=== PATIENT | female | born 1945 | race Caucasian/White ===

== ENCOUNTER 2017-04-09 15:14 | Emergency (ER) | payer MEDICARE ==
[~2017-04-09] VITALS: Ht 167.6 cm; Wt 70.0 kg
[~2017-04-09 15:14] MED LIST: ALPR0.5T3 PO; BIOT10TA PO; CALCTAB33 PO; LAMO25TA PO; LOPE7.5C PO; LYSI1TAB4 PO; VITA1000 PO; VITA200C3 PO; VITA8000 PO; VITACAP9 PO; ZINC50TA2 PO; [UNRECOGNIZED DRUG - CODE] PO
[2017-04-09 15:16] VITALS: BP 126/74; PULSE 85; RESP 16; TEMP 97.4; O2SAT 95
[2017-04-09 19:45] VITALS: BP 124/75; PULSE 88; RESP 14; O2SAT 97
[2017-04-09] MEDS ORDERED: SODIUM CHLOR 0.9% 1000 ML INJ 1,000 ML IV SCH (20:18)
--- NOTE | 2017-04-09 20:25 | PD ---
HPI Chief Complaint: GI Complaint Time Seen by Provider: 20:06 Travel History International Travel<30 days: No Contact w/Intl Traveler<30days: No Traveled to known affect area: No History of Present Illness HPI 71-year-old female complains of abdominal pain with nausea vomiting and diarrhea. Patient has history of ruptured: Abscess in the past status post partial colectomy. Patient status post right foot surgery yesterday. Patient states that she was resting today and started having severe abdominal pain with nausea vomiting and diarrhea. Patient states that the symptoms started around 12 noon today. Patient states that the symptoms are better now. Patient denies any headache. Patient denies any chest pain or shortness of breath. Patient denies any coughing congestion. Patient denies any fever chills. Patient has history of COPD, CVA, seizure, hypothyroidism not on medication. Patient status post hysterectomy and partial colectomy in the past. PFSH Past Medical History Arthritis: Yes Asthma: No Autoimmune Disease: No Anxiety: Yes Depression: No Cancer: No Cardiovascular Problems: No Chemotherapy: No COPD: Yes Cerebrovascular Accident: Yes Diabetes: No Diminished Hearing: No Endocrine: Yes Gastrointestinal Disorders: Yes (DISCOMFORT LOWER ABDOMEN; COLON ABSCESS RUPTURED) Genitourinary: Yes (frequency, discomfort) Headaches: No Hepatitis: No Hiatal Hernia: No Hypertension: No Immune Disorder: No Implanted Vascular Access Dvce: No Musculoskeletal: Yes (ARTHRITIS; OSTEOPEROSIS) Neurologic: Yes (1 SEIZURE MANY YRS AGO; HX STROKE ; ESSENTIAL TREMORS) Psychiatric: No Reproductive: No Respiratory: No Migraines: No Radiation Therapy: No Seizures: Yes Sickle Cell Disease: No Sleep Apnea: No Tetanus Vaccination: > 5 Years Influenza Vaccination: No ?: Not : 1 Para: 1 Past Surgical History Abdominal Surgery: Yes (LOWER COLON REMOVED) AICD: No Arteriovenous Shunt: No Cardiac Surgery: No Ear Surgery: No Endocrine Surgery: No Eye Surgery: Yes (CATARACT EXTRACTION, RIGHT EYE, REPAIRED TORN RETINA) Genitourinary Surgery: No Gynecologic Surgery: Yes (TOTAL HYSTERECTOMY) Hysterectomy: Yes (FULL) Insulin Pump: No Joint Replacement: Yes (RIGHT TOTAL SHOULDER) Neurologic Surgery: No Oral Surgery: Yes (TONSILLECTOMY ) Pacemaker: No Thoracic Surgery: No Tonsillectomy: Yes Other Surgery: Yes Social History Alcohol Use: Yes Tobacco Use: No Substance Use: No Allergies-Medications (Allergen,Severity, Reaction): Coded Allergies: amoxicillin (Unverified Allergy, Severe, STOPS BREATHING, 03/30/17) iohexol (Unverified Allergy, Severe, Code 99 - Respiratory Failure, ) IVP DYE FOR KIDNEY STUDIES Sulfa (Sulfonamide Antibiotics) (Unverified Allergy, Intermediate, Rash, ) iodine (Unverified Allergy, Mild, rash, 03/30/17) potassium iodide (Unverified Allergy, Mild, rash, 03/30/17) povidone-iodine (Unverified Allergy, Mild, rash, 03/30/17) sodium iodide (Unverified Allergy, Mild, rash, 03/30/17) sodium iodide (Unverified Allergy, Mild, rash, 03/30/17) Uncoded Allergies: pneumonia vaccine (Allergy, Severe, Swelling., 03/08/16) pt reports swelling in ectremitity post injection NOVOCAINE (Allergy, Mild, heart rate decreased, 06/09/16) cillins (Allergy, Unknown, RESPIRATORY, 03/08/16) Reported Meds & Prescriptions Reported Meds & Active Scripts Active Reported Biotin 10 Mg Tab 10 Mg PO DAILY Calcium 600+D Plus Minerals (Calcium Carbonate-Vitamin D W/Minerals) 600-400 Mg- Unit Tab 1 Tab PO BID Alprazolam 0.5 Mg Tab 0.5 Mg PO TID PRN D 1000 (Cholecalciferol) 1,000 Unit Tab 1,000 Units PO DAILY Imodium A-D (Loperamide HCl) 2 Mg Cap 2 Mg PO BID One capsule after each loose stool. Not to exceed 8 tablets per day. Lamotrigine 25 Mg Tab 50 Mg PO BID Lysine (Lysine HCl) 500 Mg Tab 500 Mg PO DAILY Sm Megakrill 300 mg (Krill Oil) 1 Cap Cap 300 Mg PO DAILY Vitamin A 8,000 Unit Cap 8,000 Units PO DAILY Vitamin B Complex-C (B Complex W/ C) 1 Cap Cap 1 Cap PO DAILY Vitamin E 200 Unit Cap 400 Units PO DAILY Zinc Gluconate 50 Mg Tab 50 Mg PO DAILY Review of Systems General / Constitutional: No: Fever Eyes: No: Visual changes HENT: No: Headaches Cardiovascular: No: Chest Pain or Discomfort Respiratory: No: Shortness of Breath Gastrointestinal: Positive: Nausea, Vomiting, Diarrhea, Abdominal Pain Genitourinary: No: Dysuria Musculoskeletal: No: Pain Skin: No Rash Neurologic: No: Weakness Psychiatric: No: Depression Endocrine: No: Polydipsia Hematologic/Lymphatic: No: Easy Bruising Physical Exam Narrative GENERAL: Well-nourished, well-developed patient. SKIN: Focused skin assessment warm/dry. HEAD: Normocephalic. EYES: No scleral icterus. No injection or drainage. NECK: Supple, trachea midline. No JVD or lymphadenopathy. CARDIOVASCULAR: Regular rate and rhythm without murmurs, gallops, or rubs. RESPIRATORY: Breath sounds equal bilaterally. No accessory muscle use. GASTROINTESTINAL: Abdomen soft, nondistended. Patient has mild diffuse tenderness over the abdomen. No rebound tenderness. No mass. MUSCULOSKELETAL: No cyanosis, or edema. Right foot with dressing in place. BACK: Nontender without obvious deformity. No CVA tenderness. Neurologic exam normal. Data Data Last Documented VS Vital Signs Date Time Temp Pulse Resp B/P (MAP) Pulse Ox O2 Delivery O2 Flow Rate FiO2 04/09/17 19:45 88 14 124/75 (91) 97 Room Air 04/09/17 15:16 97.4 Orders Orders Complete Blood Count With Diff (04/09/17 20:18) Comprehensive Metabolic Panel (04/09/17 20:18) Lipase (04/09/17 20:18) Prothrombin Time / Inr (Pt) (04/09/17 20:18) Act Partial Throm Time (Ptt) (04/09/17 20:18) Urinalysis - C+S If Indicated (04/09/17 20:18) Ct Abd/Pel W/O Iv Contrast (04/09/17 20:18) Iv Access Insert/Monitor (04/09/17 20:18) Ecg Monitoring (04/09/17 20:18) Oximetry (04/09/17 20:18) Ondansetron Inj (Zofran Inj) (04/09/17 20:30) Pantoprazole Inj (Protonix Inj) (04/09/17 20:30) Sodium Chlor 0.9% 1000 Ml Inj (Ns 1000 M (04/09/17 20:18) Labs Laboratory Tests Test 04/09/17 20:10 04/09/17 20:45 White Blood Count 9.2 TH/MM3 Red Blood Count 4.51 MIL/MM3 Hemoglobin 14.7 GM/DL Hematocrit 44.5 % Mean Corpuscular Volume 98.8 FL Mean Corpuscular Hemoglobin 32.7 PG Mean Corpuscular Hemoglobin Concent 33.1 % Red Cell Distribution Width 13.5 % Platelet Count 157 TH/MM3 Mean Platelet Volume 8.3 FL Neutrophils (%) (Auto) 88.8 % Lymphocytes (%) (Auto) 7.4 % Monocytes (%) (Auto) 3.1 % Eosinophils (%) (Auto) 0.2 % Basophils (%) (Auto) 0.5 % Neutrophils # (Auto) 8.2 TH/MM3 Lymphocytes # (Auto) 0.7 TH/MM3 Monocytes # (Auto) 0.3 TH/MM3 Eosinophils # (Auto) 0.0 TH/MM3 Basophils # (Auto) 0.0 TH/MM3 CBC Comment DIFF FINAL Differential Comment Prothrombin Time 9.7 SEC Prothromb Time International Ratio 0.9 RATIO Activated Partial Thromboplast Time 23.6 SEC Blood Urea Nitrogen 19 MG/DL Creatinine 0.73 MG/DL Random Glucose 122 MG/DL Total Protein 7.3 GM/DL Albumin 4.1 GM/DL Calcium Level 9.0 MG/DL Alkaline Phosphatase 70 U/L Aspartate Amino Transf (AST/SGOT) 33 U/L Alanine Aminotransferase (ALT/SGPT) 30 U/L Total Bilirubin 1.1 MG/DL Sodium Level 141 MEQ/L Potassium Level 3.9 MEQ/L Chloride Level 106 MEQ/L Carbon Dioxide Level 27.4 MEQ/L Anion Gap 8 MEQ/L Estimat Glomerular Filtration Rate 78 ML/MIN Lipase 86 U/L Urine Color YELLOW Urine Turbidity CLEAR Urine pH 5.5 Urine Specific [place] 1.022 Urine Protein TRACE mg/dL Urine Glucose (UA) NEG mg/dL Urine Ketones 10 mg/dL Urine Occult Blood TRACE Urine Nitrite NEG Urine Bilirubin NEG Urine Urobilinogen LESS THAN 2.0 MG/DL Urine Leukocyte Esterase NEG Urine RBC 6 /hpf Urine WBC 4 /hpf Urine Squamous Epithelial Cells 1 /hpf Urine Hyaline Casts 1 /lpf Urine Mucus FEW /lpf Microscopic Urinalysis Comment CULT NOT INDICATED MDM Medical Decision Making Medical Screen Exam Complete: Yes Emergency Medical Condition: Yes Interpretation(s) 21:33 PM. CBC within normal limit. CMP within normal limit. 21:48 PM. UA is negative. CT scan abdomen and pelvis shows no obstruction or acute inflammatory changes. Nonobstructive stone in both kidneys. Mass lower pole right kidney. 8 millimeters subpleural nodule left lower lobe. Patient was given results of CT to follow-up with her physician. Differential Diagnosis Differential diagnosis including gastroenteritis, gastritis, PUD, appendicitis, cholecystitis, colitis, UTI, pyelonephritis, nephrolithiasis. Narrative Course 71-year-old female with abdominal pain, nausea vomiting diarrhea. Normal saline solution 1 25 cc an hour. Protonix 40 mg IV. Zofran 4 mg IV. Diagnosis Primary Impression: Gastroenteritis Patient Instructions: General Instructions Additional Instructions: Take medications as needed. Clear fluids tonight and advance diet tomorrow. Follow-up with personal physician. Return if persistent problem or worse. Follow-up with local physician about lung nodule and kidney mass. Med/Other Pt SpecificInfo: Prescription(s) given Scripts Ondansetron Odt (Zofran Odt) 4 Mg Tab 4 MG SL Q6HR Y for Nausea/Vomiting, #10 TAB 0 Refills Prov: Bhavik Da Silva MD 04/09/17 Dicyclomine (Bentyl) 10 Mg Cap 10 MG PO TID Y for Bowel Management, #15 CAP 0 Refills Prov: Bhavik Da Silva MD 04/09/17 Disposition: 01 DISCHARGE HOME Condition: Stable Bhavik Da Silva MD Apr 09, 2017 20:25
[2017-04-09] MEDS ORDERED: ONDANSETRON HCL 4 MG/2 ML VIAL IVP ONE (20:30)
[2017-04-09] MEDS ORDERED: PANTOPRAZOLE SODIUM 40 MG VIAL IVP ONE (20:30)
[2017-04-09 20:46] LABS: AUTOMATED NEUTROPHIL # 8.2 TH/MM3 (1.8-7.7); BASOPHIL % 0.5 % (0.0-2.0); EOSINOPHIL % 0.2 % (0.0-4.0); HEMATOCRIT 44.5 % (35.0-46.0); HEMO FLAGS DIFF FINAL; LYMPH % 7.4 % (9.0-44.0); LYMPHOCYTE # 0.7 TH/MM3 (1.0-4.8); MEAN CELL VOLUME 98.8 FL (80.0-100.0); MEAN CORPUSCULAR HEMOGLOBIN 32.7 PG (27.0-34.0); MEAN CORPUSCULAR HGB CONC 33.1 % (32.0-36.0); MONO % 3.1 % (0.0-8.0); NEUT % 88.8 % (16.0-70.0); PLATELET COUNT 157 TH/MM3 (150-450); RED BLOOD COUNT 4.51 MIL/MM3 (4.00-5.30); RED CELL DISTRIBUTION WIDTH 13.5 % (11.6-17.2); WHITE BLOOD COUNT 9.2 TH/MM3 (4.0-11.0)
[2017-04-09 20:57] LABS: APTT (PATIENT) 23.6 SEC (24.3-30.1); INTERNATIONAL NORMALIZED RATIO 0.9 RATIO; PROTHROMBIN TIME - PATIENT 9.7 SEC (9.8-11.6)
[2017-04-09 20:59] LABS: ANION GAP 8 MEQ/L (5-15); AST (GOT) 33 U/L (15-37); BICARBONATE 27.4 MEQ/L (21.0-32.0); BLOOD UREA NITROGEN 19 MG/DL (7-18); CHLORIDE 106 MEQ/L (98-107); GLOMERULAR FILTRATION RATE 78 ML/MIN (>89); POTASSIUM 3.9 MEQ/L (3.5-5.1); SODIUM (NA) 141 MEQ/L (136-145)
[2017-04-09 21:00] LABS: ALT (GPT) 30 U/L (10-53)
[2017-04-09 21:02] LABS: ALKALINE PHOSPHATASE 70 U/L (45-117); TOTAL BILIRUBIN ADULT 1.1 MG/DL (0.2-1.0)
--- NOTE | 2017-04-09 21:17 | RADRPT ---
EXAM DATE/TIME: 04/09/2017 20:53 [facility] COMPARISON: No previous studies available for comparison. INDICATIONS : Abdominal pain, nausea and diarrhea. ORAL CONTRAST: No oral contrast ingested. RADIATION DOSE: 6.89 CTDIvol (mGy) MEDICAL HISTORY : Seizures. SURGICAL HISTORY : Hysterectomy. ENCOUNTER: Initial ACUITY: 1 day PAIN SCALE: 6/10 LOCATION: All quadrants. TECHNIQUE: Volumetric scanning of the abdomen and pelvis was performed. Using automated exposure control and ad justment of the mA and/or kV according to patient size, radiation dose was kept as low as reasonably achievable to obtain optimal diagnostic quality images. DICOM format image data is available electro nically for review and comparison. FINDINGS: LOWER LUNGS: An 8 mm subpleural pulmonary nodule has developed at the left lower lobe. LIVER: Homogeneous density without lesion. There is no dilation of the biliary tree. No calcified gallston es. SPLEEN: Focal capsular calcification again noted, appears benign. PANCREAS: Within normal limits. KIDNEYS: Scattered sub-3 mm nonobstructing stones are seen in both kidneys. No ureteral calculus or hydronephr osis/hydroureter demonstrated. There is a heterogeneous and potentially solid mass laterally of the l ower pole of the right kidney that measures 17 mm in size. ADRENAL GLANDS: Within normal limits. VASCULAR: There is no aortic aneurysm. BOWEL/MESENTERY: Internal sigmoid colon resection and anastomosis. No acute inflammatory changes or obstruction. The a nastomosis appears patent. Mild diverticulosis is seen of the remaining colon. ABDOMINAL WALL: Within normal limits. RETROPERITONEUM: There is no lymphadenopathy. BLADDER: No wall thickening or mass. REPRODUCTIVE: Within normal limits. INGUINAL: There is no lymphadenopathy or hernia. MUSCULOSKELETAL: No acute bony abnormality demonstrated. S. shaped thoracolumbar curvature and multilevel degenerative changes are again noted. CONCLUSION: 1. No obstruction or acute inflammatory changes are demonstrated. Interim sigmoid colon resection. Mi ld diverticulosis of the remaining colon but no evidence of diverticulitis. 2. Multiple scattered small nonobstructing stones in both kidneys. 3. There is a mass of the lower pole of the right kidney that is potentially solid. Nonemergent abdom en MRI with and without contrast recommended. 4. There is an 8 mm subpleural pulmonary nodule of the left lower lobe that is new and of concern for possible primary bronchogenic carcinoma. Outpatient PET CT recommended. Jairo Hernandez MD on April 09, 2017 at 21:11 Board Certified Radiologist. This report was verified electronically.
[2017-04-09 21:33] LABS: BLOOD, URINE TRACE (NEG); COMMENT (UR) CULT NOT INDICATED; CULTURE IF INDICATED CULT NOT INDICATED; GLUCOSE,URINE NEG (NEG); HYALINE CAST, URINE 1 /lpf (RARE); KETONE, URINE 10 mg/dL (NEG); MUCUS URINE FEW /lpf (OCC); NITRITE,URINE NEG (NEG); PH, URINE 5.5 (5.0-8.5); SQUAMOUS EPITHELIAL CELL URINE 1 /hpf (0-5); URINE COLOR YELLOW (YELLW/STRAW)
[2017-04-09] MEDS ORDERED: ZOFR4TAB3 SL (21:54)
[2017-04-09] MEDS ORDERED: DICY10 PO (21:54)
== END 2017-04-09 22:29 | disposition home or self-care (01) ==
LOC: NEPC 15:14
DX: K52.9 Noninfective gastroenteritis and colitis, unspecified (principal); N20.0 Calculus of kidney; J44.9 Chronic obstructive pulmonary disease, unspecified; R56.9 Unspecified convulsions; E03.9 Hypothyroidism, unspecified; M81.0 Age-related osteoporosis without current pathological fracture; F41.9 Anxiety disorder, unspecified; Z86.73 Personal history of transient ischemic attack (TIA), and cerebral infarction without residual deficits; Z79.899 Other long term (current) drug therapy
CPT/HCPCS: 74176; 80053; 81001; 83690; 85025; 85610; 85730; 96361; 96374; 96375; 99285; C9113; J2405; J7030